=== PATIENT | female | born 1955 | race Caucasian/White ===

== ENCOUNTER 2018-10-19 23:24 | Observation (INO) ==
[2018-10-19] MEDS: Sod Chloride 0.9% Inj 1,000 ML IV.CONT SCH (23:42)
--- NOTE | 2018-10-19 23:49 | ED ---
HPI General Chief Complaint: Chest Pain Stated Complaint: Pain between shoulder blades moving to front Time Seen by Provider: 10/19/18 23:35 Source: patient Mode of arrival: ambulatory Limitations: no limitations History of Present Illness HPI narrative: 63-year-old female presents to the emergency department for 1 week of intermittent chest pain that has been constant since this morning. Pain radiates into her back. Some mild right upper quadrant abdominal pain. No nausea no vomiting no sweats no shortness of breath. No referred neck jaw shoulder or arm discomfort/pain. Patient has history of diabetes but denies personal history of hypertension dyslipidemia or tobaccoism. Patient does have family history of heart disease with mother passing away after CABG. Mother was elderly. Patient denies any evaluation for chest pain in the past. Patient is a recall specific precipitating event but does note worsening of symptoms with exertion. Patient rates discomfort 8/10 in intensity. Patient is taken no medications for symptom relief such as ibuprofen and acetaminophen or antacids. Patient has been compliant with her blood sugar medication and blood sugars have been in the upper 100s but otherwise well controlled. No recent febrile illness long distance travel protracted bedrest surgical procedure clotting disorder history. MD complaint: Reports chest pain STEMI Alert: No Onset (ago): day(s) Time: 08:00 Duration: constant Onset: during rest and during exertion Pain location: Reports substernal and other (to back) Severity: severe Severity scale (1-10): 8 Quality: Reports tightness, aching and heaviness; Denies ripping and similar to prior PR Pain radiation: Reports back; Denies RUE, LUE, neck, jaw/teeth and abdomen Relieving factors: nothing (has taken nothing for symptoms) Exacerbating factors: exertion Context: Denies recent illness, recent surgery, recent immobilization, recent travel, trauma/injury, new medications and history of DVT/PE Associated symptoms: Denies nausea, vomiting, diaphoresis, dyspnea, sense of impending doom, syncope, palpitations, fever, cough and leg swelling Treatments prior to arrival chest pain: Reports none Related Data On Oral Contraceptives: No Home Medications Medication Instructions Recorded Confirmed glimepiride 2 mg PO QAM 10/19/18 10/19/18 meloxicam 15 mg PO HS 10/19/18 10/19/18 metformin 1,000 mg PO DAILY 10/19/18 10/19/18 Allergies Allergy/AdvReac Type Severity Reaction Status Date / Time No Known Allergies Allergy Verified 10/19/18 23:30 Review of Systems ROS: all other systems reviewed are negative PMFSH History History Provided By: Patient (Diabetes family history CAD) Medical History Medical History Diabetes (Acute) Surgical History Surgical History Hx of tonsillectomy (Acute) Social History Social History Substance History: No History of Abuse Second Hand Smoke Exposure: No Smoking Status: Former smoker How Often Do You Have a Drink Containing Alcohol: 2 to 4 times a month Exam Narrative Exam Narrative: GENERAL: Well-nourished, well-developed patient. SKIN: Focused skin assessment warm/dry. HEAD: Normocephalic. EYES: No scleral icterus. No injection or drainage. NECK: Supple, trachea midline. No JVD or lymphadenopathy. CARDIOVASCULAR: Regular rate and rhythm without murmurs, gallops, or rubs. RESPIRATORY: Breath sounds equal bilaterally. No accessory muscle use. GASTROINTESTINAL: Abdomen soft, non-tender, nondistended. MUSCULOSKELETAL: No cyanosis, or edema. BACK: Nontender without obvious deformity. No CVA tenderness. Course Initial Documented Vital Signs Temperature 98.7 F 10/19/18 23:30 Pulse Rate 81 10/19/18 23:30 Respiratory Rate 18 10/19/18 23:30 Blood Pressure 185/90 H 10/19/18 23:30 Pulse Oximetry 95 10/19/18 23:30 Last Documented Vital Signs Temperature 98.7 F 10/19/18 23:30 Pulse Rate 75 10/20/18 04:00 Respiratory Rate 18 10/20/18 04:00 Blood Pressure 138/69 10/20/18 04:00 Pulse Oximetry 95 10/20/18 04:14 Medical Decision Making MDM Narrative Medical decision making narrative: 63-year-old female with retrosternal chest pain radiating into the back placed on rn cardiac cath with continuous pulse oximetry IV access obtained specimens collected and sent for resulting EKG performed shows sinus rhythm QS septally with T wave inversion age- indeterminate mild lateral ST segment depression no acute ST elevation no previous EKG. Medical Screen Exam Complete: Yes Emergency Medical Condition: Yes Differential Diagnosis Differential Diagnosis: Chest pain, ACS, PR, aortic dissection, aneurysm, cholecystitis pancreatitis esophageal spasm PE Medical Records Medical records reviewed: Yes I reviewed the patient's medical records. no prior visits Lab Data Lab results reviewed: Yes I reviewed the patient's lab results. Result diagrams: 10/19/18 23:40 10/19/18 23:40 Lab Results 10/19/18 10/19/18 10/19/18 Range/Units 23:40 23:40 23:40 CBC w Diff Auto diff final WBC 10.7 (4.0-11.0) th/mm3 RBC 5.06 (4.00-5.30) mil/mm3 Hgb 13.6 (11.6-15.3) gm/dL Hct 41.5 (35.0-46.0) % MCV 82.1 (80.0-100.0) fL MCH 27.0 (27.0-34.0) pg MCHC 32.8 (32.0-36.0) % RDW 12.3 (11.6-17.2) % Plt Count 193 (150-450) th/mm3 MPV 9.8 (7.0-11.0) fL Neut % (Auto) 65.5 (16.0-70.0) % Lymph % (Auto) 25.0 (9.0-44.0) % [place] % (Auto) 6.9 (0.0-8.0) % Eos % (Auto) 2.4 (0.0-4.0) % Baso % (Auto) 0.2 (0.0-2.0) % Neut # (Auto) 7.0 (1.8-7.7) th/mm3 Lymph # (Auto) 2.7 (1.0-4.8) th/mm3 [place] # (Auto) 0.7 (0.0-0.9) th/mm3 Eos # (Auto) 0.3 (0.0-0.4) th/mm3 Baso # (Auto) 0.0 (0.0-0.2) th/mm3 WBC Differential . Differential Comment . Sodium 142 (136-145) meq/L Potassium 4.1 (3.5-5.1) meq/L Chloride 108 H (98-107) meq/L Carbon Dioxide 27.4 (21.0-32.0) meq/L Anion Gap 7 (5-15) meq/L BUN 20 H (7-18) mg/dL Creatinine 0.68 (0.50-1.00) mg/dL Estimated GFR 88 L (>89) mL/min Random Glucose 170 H (74-106) mg/dL Calcium 10.2 H (8.5-10.1) mg/dL Total Bilirubin 0.6 (0.2-1.0) mg/dL AST 99 H (15-37) U/L ALT 66 H (10-53) U/L Alkaline Phosphatase 96 (45-117) U/L Total Creatine Kinase 58 (26-192) U/L Troponin I 0.02 (0.02-0.05) ng/mL Total Protein 7.0 (6.4-8.2) g/dL Albumin 3.7 (3.4-5.0) g/dL Lipase 206 (73-393) U/L 10/20/18 Range/Units 02:50 CBC w Diff WBC (4.0-11.0) th/mm3 RBC (4.00-5.30) mil/mm3 Hgb (11.6-15.3) gm/dL Hct (35.0-46.0) % MCV (80.0-100.0) fL MCH (27.0-34.0) pg MCHC (32.0-36.0) % RDW (11.6-17.2) % Plt Count (150-450) th/mm3 MPV (7.0-11.0) fL Neut % (Auto) (16.0-70.0) % Lymph % (Auto) (9.0-44.0) % Craven % (Auto) (0.0-8.0) % Eos % (Auto) (0.0-4.0) % Baso % (Auto) (0.0-2.0) % Neut # (Auto) (1.8-7.7) th/mm3 Lymph # (Auto) (1.0-4.8) th/mm3 [place]ven # (Auto) (0.0-0.9) th/mm3 Eos # (Auto) (0.0-0.4) th/mm3 Baso # (Auto) (0.0-0.2) th/mm3 WBC Differential Differential Comment Sodium (136-145) meq/L Potassium (3.5-5.1) meq/L Chloride (98-107) meq/L Carbon Dioxide (21.0-32.0) meq/L Anion Gap (5-15) meq/L BUN (7-18) mg/dL Creatinine (0.50-1.00) mg/dL Estimated GFR (>89) mL/min Random Glucose (74-106) mg/dL Calcium (8.5-10.1) mg/dL Total Bilirubin (0.2-1.0) mg/dL AST (15-37) U/L ALT (10-53) U/L Alkaline Phosphatase (45-117) U/L Total Creatine Kinase 47 (26-192) U/L Troponin I 0.03 (0.02-0.05) ng/mL Total Protein (6.4-8.2) g/dL Albumin (3.4-5.0) g/dL Lipase (73-393) U/L Imaging Data Radiologist's impression: Chest X-Ray 10/19/18 23:35 CONCLUSION: 1. Negative portable chest. Gallbladder Ultrasound 10/20/18 00:52 CONCLUSION: 1. Cholelithiasis without sonographic evidence for acute cholecystitis. 2. Echogenic enlarged liver consistent with hepatic steatosis versus medical liver disease. 3. Nonvisualization of the pancreas. ECG Data EKG Prior to Arrival: No Attestation: I personally reviewed and interpreted this ECG as follows: (EKG: normal sinus rhythm rate 75 QS septally with T wave inversion age-indeterminate mild lateral ST segment depression no acute ST elevation no previous EKG.) Discharge Plan Discharge Disposition Patient Disposition: ED Admit(ED Internal Use Only) Discharge Condition Condition: Stable Discharge Order Discharge Orders: ED Use Only Admit Order (Routine); Ordered 10/20/18 Ordered By: Ruby Poe Discharge Details Diagnosis: Chest pain Physicians Team ED Provider: Ruby Poe Primary Care Provider: Kody Crane Attending Provider: Katelin Arellano Discharge Interventions Interventions: Vital Signs Last Done: 10/20/18 04:00 Status ED Status: Admitted Observation Patient
--- NOTE | 2018-10-19 23:56 | XR ---
EXAM DATE: 10/19/2018 11:48 PM EST AGE/SEX: 63 years / Female INDICATIONS: Chest pain, radiating from back to chest. CLINICAL DATA: This is the patient's initial encounter. Patient reports that signs and symptoms have been present for 1 day and indicates a pain score of 8/10. MEDICAL/SURGICAL HISTORY: None. None. COMPARISON: No prior exams available for comparison. FINDINGS: No significant focal pleural or parenchymal opacities. The cardiomediastinal contours are unremarkabl e. Osseous structures are intact. CONCLUSION: 1. Negative portable chest. Electronically signed by: Pablo Parry MD Board Certified Radiologist 10/19/2018 11:[address]
[2018-10-19] MEDS ORDERED: Morphine Inj 4 MG/ML Vial IV.PUSH ONE (23:58)
[2018-10-19] MEDS ORDERED: Sodium Chlor 0.9% Inj 500 ML IV.SIG ONE (23:58)
[2018-10-20] LABS: Baso % (Auto) 0.2 % (0.0-2.0); Eos # (Auto) 0.3 th/mm3 (0.0-0.4); Eos % (Auto) 2.4 % (0.0-4.0); Hematocrit 41.5 % (35.0-46.0); Hemoglobin 13.6 gm/dL (11.6-15.3); Lymph # (Auto) 2.7 th/mm3 (1.0-4.8); Mean Corpuscular HGB Conc 32.8 % (32.0-36.0); Mean Corpuscular Volume 82.1 fL (80.0-100.0); Mean Platelet Volume 9.8 fL (7.0-11.0); Mono # (Auto) 0.7 th/mm3 (0.0-0.9); Mono % (Auto) 6.9 % (0.0-8.0); Neut % (Auto) 65.5 % (16.0-70.0); Platelet Count 193 th/mm3 (150-450); Red Blood Count 5.06 mil/mm3 (4.00-5.30); Red Cell Distribution Width 12.3 % (11.6-17.2); White Blood Count 10.7 th/mm3 (4.0-11.0)
[2018-10-20 00:09] LABS: Chloride 108 meq/L (98-107); Potassium 4.1 meq/L (3.5-5.1); Sodium 142 meq/L (136-145)
[2018-10-20 00:14] LABS: Albumin 3.7 g/dL (3.4-5.0); Anion Gap 7 meq/L (5-15); Calcium 10.2 mg/dL (8.5-10.1); Carbon Dioxide 27.4 meq/L (21.0-32.0); Glucose,Random 170 mg/dL (74-106); Lipase 206 U/L (73-393)
[2018-10-20 00:15] LABS: Blood Urea Nitrogen 20 mg/dL (7-18)
[2018-10-20 00:17] LABS: Alanine Aminotransferase 66 U/L (10-53); Aspartate Aminotransferase 99 U/L (15-37)
[2018-10-20 00:18] LABS: Glomerular Filtration Rate 88 mL/min (>89)
[2018-10-20 00:20] LABS: Alkaline Phosphatase 96 U/L (45-117)
[2018-10-20 00:22] LABS: Troponin I 0.02 ng/mL (0.02-0.05)
[2018-10-20 00:26] LABS: Creatine Kinase 58 U/L (26-192)
--- NOTE | 2018-10-20 02:05 | US ---
EXAM DATE: 10/20/2018 1:20 AM EST AGE/SEX: 63 years / Female INDICATIONS: Right upper quadrant pain. CLINICAL DATA: This is the patient's initial encounter. Patient reports that signs and symptoms have been present for 1 week and indicates a pain score of 8/10. MEDICAL/SURGICAL HISTORY: . Diabetes. Former smoker. . Tonsillectomy. COMPARISON: No prior exams available for comparison. MEASUREMENTS: Liver:__ 23.0 cm. Common Bile Duct:__ 4mm. FINDINGS: Liver: Mild diffuse increased echogenicity without focal lesion or ductal dilatation. Portal Vein: Hepatopedal flow seen in portal vein. Common Duct: No intraluminal mass or stone visualized. Gallbladder: 2 cm calcified gallstone near the gallbladder neck. No significant gallbladder wall thi ckening or pericholecystic fluid. Pancreas: Not well visualized. Right Kidney: Normal echogenicity and cortical thickness. No mass or hydronephrosis. Other: None. CONCLUSION: 1. Cholelithiasis without sonographic evidence for acute cholecystitis. 2. Echogenic enlarged liver consistent with hepatic steatosis versus medical liver disease. 3. Nonvisualization of the pancreas. Electronically signed by: Pablo Parry MD Board Certified Radiologist 10/20/2018 2:03 AM MIKKI Ruvalcaba
[2018-10-20] MEDS ORDERED: Regadenoson Inj 0.4 MG/5 ML Syringe IV.PUSH ONE (02:29)
[2018-10-20 03:19] LABS: Troponin I 0.03 ng/mL (0.02-0.05)
[2018-10-20 06:10] LABS: Troponin I 0.03 ng/mL (0.02-0.05)
[2018-10-20] MEDS: Pantoprazole Inj 40 MG Vial IV.PUSH SCH (08:35)
[2018-10-20] MEDS: Sod Chloride 0.9% Inj 1,000 ML IV.CONT SCH (11:59)
--- NOTE | 2018-10-20 14:36 | CT ---
EXAM DATE: 10/20/2018 2:29 PM EST AGE/SEX: 63 years / Female INDICATIONS: Diffuse abdominal pain. Nausea. CLINICAL DATA: This is the patient's initial encounter. Patient reports that signs and symptoms have been present for 1 day and indicates a pain score of 8/10. MEDICAL/SURGICAL HISTORY: Diabetes. Tonsillectomy. RADIATION DOSE: 23.10 CTDI (mGy) ; Patient body habitus COMPARISON: No prior exams available for comparison. TECHNIQUE: Multiple contiguous axial images were obtained through the abdomen. Images were obtained using multiple row detector helical technique. Using automated exposure control and adjustment of the mA and/or kV according to patient size, radiation dose was kept as low as reasonably achievable to o btain optimal diagnostic quality images. DICOM format image data is available electronically for rev iew and comparison. Lack of IV contrast limits the diagnosis for certain organ pathology. FINDINGS: Lower Lungs: The visualized lower lungs are clear. Liver: The liver has a homogeneous density without space-occupying lesion. There is no dilation of th e biliary tree. There are gallstones in the gallbladder. No surrounding inflammatory changes. Spleen: Homogeneous density without enlargement. Pancreas: Unremarkable without mass or calcification. Kidneys: Normal in size and shape. No evidence of mass or hydronephrosis. 4 mm stone lower pole righ t kidney not causing obstruction. The ureters are nondilated. Adrenal Glands: 2 cm left adrenal nodule. Right adrenal gland unremarkable. Aorta: The aorta and proximal iliac vessels are grossly unremarkable without aneurysmal dilation. Bowel/Mesentery: The bowel loops are grossly unremarkable. The cecum and sigmoid colon have a normal configuration. No inflammatory changes. Stool throughout the colon. No free fluid. Abdominal Wall: Intact. Retroperitoneum: No evidence of adenopathy in the retrocrural, para-aortic, or deep pelvic regions. Bladder: Contours are smooth. Reproductive Organs: No abnormal masses or calcifications seen. Inguinal: The inguinal region is unremarkable without evidence of adenopathy. Bony Structures: Moderate old compression fracture of L4. Otherwise the rest the bony structures ar e grossly intact. There are degenerative changes noted involving the bony structures. CONCLUSION: 1. Gallstones in the gallbladder. No biliary tract obstruction. 2. 2 cm left adrenal nodule most likely an adrenal adenoma. 3. 4 mm nonobstructing stone lower pole right kidney. 4. Old moderate compression fracture of L4. Electronically signed by: Brando Hopper MD Board Certified Radiologist 10/20/2018 2:35 PM EST
--- NOTE | 2018-10-20 15:22 | P.HP ---
History of Present Illness Primary Care Physician: Kody Crane MD Chief Complaint: Chest pain History of Present Illness: This is a 63-year-old female patient with a known medical history of diabetes who presented to the ED with complaints of chest pain. Patient states that over the past week she has had intermittent chest pain that started with her normal day the activities, states that the pain occurs in the middle lower back and radiates to the front of her chest, she states the pain is sharp in nature and has been constant since this morning. He did not 8 out of 10 at its worst on pain scale. She also complains of some right upper quadrant abdominal pain. She admits to associated nausea and shortness of breath, denies any vomiting or sweating. She states that she has never had this type of pain before. Denies any recent illness including fever, chills, cough, headache, diarrhea or dysuria. Patient denies ever undergoing a cardiac stress test. Her mother does have a history of CAD and underwent a CABG. Her dad also has cardiovascular disease. Does have a history of diabetes, appropriately controlled on home medications. Denies any previous colonoscopy. She does state that she has been taking Advil every morning for back pain. Denies any previous ulcer. Denies any black or bloody stools. - Diagnosis (1) Chest pain Review of Systems All other systems reviewed negative except as stated in HPI PMFSH - History History Provided By: Patient - Medical History Medical History: Medical History (Last Reviewed 10/20/18 @ 15:18 by Margie Julian) Diabetes - Surgical History Surgical History: Surgical History (Last Reviewed 10/20/18 @ 15:18 by Margie Julian) Hx of tonsillectomy - Family History Family History: Family History (Last Updated 10/20/18 @ 15:18 by Margie Julian) Other Cardiovascular disease - Social History I have reviewed the patient's Social History: Yes - Tobacco History Second Hand Smoke Exposure: Yes Smoking Status: Former smoker Tobacco Type: Cigarettes - Alcohol History How Often Do You Have a Drink Containing Alcohol: 2 to 4 times a month - Substance Use History Substance History: No History of Abuse - Immunization History Tetanus Immunization: >5 Years Medications and Allergies Active Medications: Active Medications Sodium Chloride (Ns Inj) 1,000 mls @ 100 mls/hr IV.CONT .Q10H [facility] Last Admin: 10/20/18 11:59 Dose: 100 mls/hr Nitroglycerin (Nitrostat Sl) 0.4 mg SL Q5M PRN PRN Reason: CHEST PAIN Pantoprazole Sodium (Protonix Inj) 40 mg IV.PUSH Q24H [facility] Last Admin: 10/20/18 08:35 Dose: 40 mg Sodium Chloride (Ns Flush) 2 ml IV.FLUSH BID [facility] Last Admin: 10/20/18 11:53 Dose: Not Given Sodium Chloride (Ns Flush) 2 ml IV.FLUSH PRN PRN PRN Reason: FLUSH AFTER USING IV ACCESS Sucralfate (Carafate) 1 gm PO BIDAC [facility] Allergies Allergy/AdvReac Type Severity Reaction Status Date / Time No Known Allergies Allergy Verified 10/19/18 23:30 Home Medications Medication Instructions Recorded Confirmed Type glimepiride 2 mg PO QAM 10/19/18 10/19/18 History meloxicam 15 mg PO HS 10/19/18 10/19/18 History metformin 1,000 mg PO DAILY 10/19/18 10/19/18 History Exam Vital signs: Vital Signs 10/19/18 23:30 10/19/18 23:48 10/19/18 23:55 Temperature 98.7 F Pulse Rate 81 80 81 Respiratory Rate 18 Blood Pressure 185/90 H 135/70 129/72 Pulse Oximetry 95 10/20/18 00:01 10/20/18 00:03 10/20/18 00:19 Temperature Pulse Rate 81 78 81 Respiratory Rate Blood Pressure 115/62 134/71 Pulse Oximetry 95 10/20/18 00:45 10/20/18 04:00 10/20/18 04:14 Temperature Pulse Rate 78 75 Respiratory Rate 18 Blood Pressure 143/71 H 138/69 Pulse Oximetry 96 95 10/20/18 07:04 10/20/18 07:11 10/20/18 10:44 Temperature Pulse Rate 79 78 Respiratory Rate 20 20 Blood Pressure 140/77 145/65 H Pulse Oximetry 94 L 94 L 94 L 10/20/18 12:00 Temperature 98.8 F Pulse Rate 80 Respiratory Rate 19 Blood Pressure 150/81 H Pulse Oximetry 97 Intake & Output 10/19/18 10/20/18 10/20/18 18:59 06:59 18:59 Intake Total 500 / 500 1000 / 1000 Balance 500 / 500 1000 / 1000 Weight 93.2 kg Intake: IV 500 / 500 1000 / 1000 NS Inj 1,000 ML @ 100 mls/hr IV 1000 / 1000 .CONT .Q10H [facility] Rx#:[id number] NS Inj 500 ML @ Wide Open IV. 500 / 500 SIG BOLUS ONE Rx#:[id number] Oral 0 / 0 Narrative: GENERAL: Well-developed, well-nourished patient in NAD. SKIN: Warm and dry. No rash. HEAD: Normocephalic. Atraumatic. EYES: Pupils equal and round. No scleral icterus. No injection or drainage. ENT: No nasal bleeding or discharge. Mucous membranes pink and moist. NECK: Supple. Trachea midline. CARDIOVASCULAR: Regular rate and rhythm. S1, S2 noted. No murmur appreciated. No chest pain to palpation. RESPIRATORY: No accessory muscle use. Clear to auscultation. Breath sounds equal bilaterally. GASTROINTESTINAL: Abdomen soft, nondistended. Normoactive bowel sounds x4. Tenderness to epigastric area as well as right upper quadrant pain. MUSCULOSKELETAL: No obvious deformities. Extremities without clubbing, cyanosis , or edema. NEUROLOGICAL: Awake and alert. No obvious cranial nerve deficits. Motor grossly within normal limits. 5/5 muscle strength in bilateral upper and lower extremities. Normal speech. PSYCHIATRIC: Appropriate mood and affect; insight and judgment normal. Results - Labs CBC & Chem 7: 10/19/18 23:40 10/19/18 23:40 Labs: Laboratory Results - last 24 hr 10/19/18 10/19/18 10/19/18 23:40 23:40 23:40 CBC w Diff Auto diff final WBC 10.7 RBC 5.06 Hgb 13.6 Hct 41.5 MCV 82.1 MCH 27.0 MCHC 32.8 RDW 12.3 Plt Count 193 MPV 9.8 Neut % (Auto) 65.5 Lymph % (Auto) 25.0 [place] % (Auto) 6.9 Eos % (Auto) 2.4 Baso % (Auto) 0.2 Neut # (Auto) 7.0 Lymph # (Auto) 2.7 [place] # (Auto) 0.7 Eos # (Auto) 0.3 Baso # (Auto) 0.0 WBC Differential . Differential Comment . Sodium 142 Potassium 4.1 Chloride 108 H Carbon Dioxide 27.4 Anion Gap 7 BUN 20 H Creatinine 0.68 Estimated GFR 88 L POC Glucose Random Glucose 170 H Calcium 10.2 H Total Bilirubin 0.6 AST 99 H ALT 66 H Alkaline Phosphatase 96 Total Creatine Kinase 58 Troponin I 0.02 Total Protein 7.0 Albumin 3.7 Lipase 206 10/20/18 10/20/18 10/20/18 02:50 05:40 12:17 CBC w Diff WBC RBC Hgb Hct MCV MCH MCHC RDW Plt Count MPV Neut % (Auto) Lymph % (Auto) [place] % (Auto) Eos % (Auto) Baso % (Auto) Neut # (Auto) Lymph # (Auto) [place] # (Auto) Eos # (Auto) Baso # (Auto) WBC Differential Differential Comment Sodium Potassium Chloride Carbon Dioxide Anion Gap BUN Creatinine Estimated GFR POC Glucose 157 H Random Glucose Calcium Total Bilirubin AST ALT Alkaline Phosphatase Total Creatine Kinase 47 46 Troponin I 0.03 0.03 Total Protein Albumin Lipase - Imaging Impressions Chest X-Ray 10/19/18 23:35 CONCLUSION: 1. Negative portable chest. Abdomen/Pelvis CT 10/20/18 00:00 CONCLUSION: 1. Gallstones in the gallbladder. No biliary tract obstruction. 2. 2 cm left adrenal nodule most likely an adrenal adenoma. 3. 4 mm nonobstructing stone lower pole right kidney. 4. Old moderate compression fracture of L4. Gallbladder Ultrasound 10/20/18 00:52 CONCLUSION: 1. Cholelithiasis without sonographic evidence for acute cholecystitis. 2. Echogenic enlarged liver consistent with hepatic steatosis versus medical liver disease. 3. Nonvisualization of the pancreas. Caprini VTE Risk Assessment Caprini VTE Risk Assessment: Moderate/High Risk (score >= 2) Caprini Risk Assessment Model: Point Value = 1 Point Value = 2 Point Value = 3 Point Value = 5 Age 41-60 Minor surgery BMI > 25 kg/m2 Swollen legs Varicose veins or History of unexplained or recurrent spontaneous Oral contraceptives or hormone replacement Sepsis (< 1 month) Serious lung disease, including pneumonia (< 1 month) Abnormal pulmonary function Acute myocardial infarction Congestive heart failure (< 1 month) History of inflammatory bowel disease Medical patient at bed rest Age 61-74 Arthroscopic surgery Major open surgery (> 45 min) Laparoscopic surgery (> 45 min) Malignancy Confined to bed (> 72 hours) Immobilizing plaster cast Central venous access Age >= 75 History of VTE Family history of VTE Factor V Leiden Prothrombin [id number] Lupus anticoagulant Anticardiolipin antibodies Elevated serum homocysteine Heparin-induced thrombocytopenia Other congenital or acquired thrombophilia Stroke (< 1 month) Elective arthroplasty Hip, pelvis, or leg fracture Acute spinal cord injury (< 1 month) Prophylaxis Regimen: Total Risk Factor Score Risk Level Prophylaxis Regimen 0-1 Low Early ambulation 2 Moderate Order ONE of the following: *Sequential Compression Device (SCD) *Heparin 5000 units SQ BID 3-4 Higher Order ONE of the following medications: *Heparin 5000 units SQ TID *Enoxaparin/Lovenox 40 mg SQ daily (WT < 150 kg, CrCl > 30 mL/min) *Enoxaparin/Lovenox 30 mg SQ daily (WT < 150 kg, CrCl > 10-29 mL/min) *Enoxaparin/Lovenox 30 mg SQ BID (WT < 150 kg, CrCl > 30 mL/min) AND/OR *Sequential Compression Device (SCD) 5 or more Highest Order ONE of the following medications: *Heparin 5000 units SQ TID (Preferred with Epidurals) *Enoxaparin/Lovenox 40 mg SQ daily (WT < 150 kg, CrCl > 30 mL/min) *Enoxaparin/Lovenox 30 mg SQ daily (WT < 150 kg, CrCl > 10-29 mL/min) *Enoxaparin/Lovenox 30 mg SQ BID (WT < 150 kg, CrCl > 30 mL/min) AND *Sequential Compression Device (SCD) Assessment and Plan - Assessment (1) Chest pain Code(s): R07.9 - Chest pain, unspecified Status: Acute - Plan This is a 63-year-old female patient with: Chest pain, atypical -Patient presented with a one-week history of back pain that radiated to her chest and left arm. -Serial EKGs and serial troponins been ordered for ruling out ACS purposes. Serial troponins flat. EKG reviewed showing sinus rhythm with no ST changes. -Cardiac telemetry continue, monitor for any arrhythmias. -Chest x-ray reviewed showing no acute abnormalities. -Aspirin given in ED. Continue daily. -Add lipid panel to labs. -Nitroglycerin as needed for chest pain. -Patient will undergo a cardiac stress test to further rule out any ischemia. ACS has been ruled out. -Further hospitalization treatment plan will depend on nuclear imaging results. -Patient stable this time and agreeable to plan. Abdominal pain Nausea -Abdominal/pelvis CT done showing gallstones no acute cholecystitis. Gallbladder ultrasound not showing any acute findings. -Provided with Protonix. As well as Carafate. -N.p.o. for now. -Antiemetics as needed. IV morphine given in ED. Type 2 diabetes mellitus, chronic -Accu-Chek before meals at bedtime, sliding scale, cover as needed. Monitor blood sugar trends. Monitor for hypoglycemia, n.p.o. DVT prophylaxis: SCDs.
[2018-10-20] MEDS ORDERED: Dextrose 50% in Water 50 ML Vial IV.PUSH PRN (15:24)
[2018-10-20] MEDS: Sucralfate 1 GM Tablet PO SCH (16:31)
[2018-10-20] MEDS: Insulin NovoLOG Aspart Correctional Sugar Inj SQ SCH ×2 (16:34→23:00)
--- NOTE | 2018-10-20 16:46 | NM ---
EXAM DATE: 10/20/2018 4:33 PM EST AGE/SEX: 63 years / Female INDICATIONS:Angina. . Intermittent chest pain. CLINICAL DATA: This is the patient's initial encounter. Patient reports that signs and symptoms have been present for 1 week and indicates a pain score of 3/10. MEDICAL/SURGICAL HISTORY: Diabetes. Tonsillectomy. COMPARISON: No prior exams available for comparison. DOSE: 8.8 mCi Tc 99m Myoview at rest 27.3 mCi [id number] at stress 0.4 mg Lexiscan STRESS SYMPTOMS: None. EJECTION FRACTION: 32 % TECHNIQUE: The patient underwent pharmacologic stress with infusion of prescribed dose. Continuous ECG tracing was monitored during stress. Gated SPECT imaging was performed after stress and conventi onal SPECT imaging was performed at rest. The examination was performed on a SPECT/CT scanner, both attenuation and non-corrected datasets were reviewed. FINDINGS: Distribution: The maximum perfused segment at stress is in the posterior basal wall. Perfusion Study: There is a very large area of absent perfusion involving the apex. A mild degree o f multi territory norman-infarct ischemia cannot be excluded. Gated Study: Apical akinesis. Moderate left ventricular chamber dilatation. The ejection fraction i s calculated at 32%. RISK CATEGORY: High (>3% Annual Mortality Rate) CONCLUSION: Large apical infarct. Electronically signed by: Bowen Morales MD Board Certified Radiologist 10/20/2018 4:45 PM EST
--- NOTE | 2018-10-20 18:06 | TR ---
Date Performed: 10/20/2018 Time Performed: 15:23:43 DOCTOR: Mahsa Turcios DRUG LIST: CLINICAL HISTORY: REASON FOR TEST: Angina REASON FOR ENDING: OBSERVATION: CONCLUSION: Lexiscan stress test was performed under standard four minute protocol. Radionuclid e was injected one minute prior to ending the test. No electrocardiographic abormalities were present to suggest ischemia. Nuclear imaging and interpretation are pending. COMMENTS: Lexiscan stress test was performed under standard four minute protocol. Radionuclide was injected one minute prior to ending the test. No electrocardiographic abormalities were present t o suggest ischemia. Nuclear imaging and interpretation are pending.
--- NOTE | 2018-10-20 20:01 | ECG ---
Date Performed: 10/20/2018 Time Performed: 02:35:43 PTAGE: 63 years EKG: Sinus rhythm LOW QRS VOLTAGE IN PRECORDIAL LEADS SEPTAL MYOCARDIAL INFARCTION Since the previous tracing, no sign ificant change noted ABNORMAL ECG PREVIOUS TRACING : 10/19/2018 23.38 DOCTOR: Mahsa Turcios Interpretating Date/Time 10/20/2018 20:01:10
--- NOTE | 2018-10-20 20:01 | ECG ---
Date Performed: 10/19/2018 Time Performed: 23:38:01 PTAGE: 63 years EKG: Sinus rhythm LOW QRS VOLTAGE IN PRECORDIAL LEADS SEPTAL MYOCARDIAL INFARCTION ABNORMAL ECG NO PREVIOUS TRACING DOCTOR: Mahsa Turcios Interpretating Date/Time 10/20/2018 20:00:54
--- NOTE | 2018-10-20 20:02 | ECG ---
Date Performed: 10/20/2018 Time Performed: 05:36:57 PTAGE: 63 years EKG: Sinus rhythm LOW QRS VOLTAGE IN PRECORDIAL LEADS SEPTAL MYOCARDIAL INFARCTION Since the previous tracing, no sign ificant change noted ABNORMAL ECG PREVIOUS TRACING : 10/20/2018 02.35 DOCTOR: Mahsa Turcios Interpretating Date/Time 10/20/2018 20:01:18
[2018-10-20] MEDS ORDERED: Meloxicam 15 MG Tablet PO SCH (21:00)
[2018-10-20] MEDS: Metoprolol Tartrate 25 MG Tablet PO SCH (21:15)
[2018-10-20 22:50] LABS: Chol/HDL Ratio 5.34 Ratio; HDL Cholesterol 42.3 mg/dL (40.0-60.0)
[2018-10-21] MEDS: Sucralfate 1 GM Tablet PO SCH (07:16)
[2018-10-21] MEDS: Insulin NovoLOG Aspart Correctional Sugar Inj SQ SCH ×2 (07:17→11:23)
[2018-10-21] MEDS ORDERED: Lisinopril 5 MG Tablet PO SCH (09:00)
[2018-10-21] MEDS: Pantoprazole Inj 40 MG Vial IV.PUSH SCH (10:24)
[2018-10-21] MEDS: Metoprolol Tartrate 25 MG Tablet PO SCH (10:24)
--- NOTE | 2018-10-21 11:36 | ECHRPT ---
Indication: Heart Failure CONCLUSIONS Normal left ventricular size. Wall thickness is measured at the upper limits of normal. The left ventricular systolic function is normal with an estimated ejection fraction in the range of 50-55%. Possible small area of apical akinesis. Mild mitral annular calcification is present. Trileaflet aortic valve. Mild aortic valve sclerosis is present. There is trace tricuspid valve regurgitation. The estimated pulmonary arterial pressure is 40 mmHg. BP: / HR: Rhythm: MEASUREMENTS (Male / Female) Normal Values Technical Quality:Fair 2D ECHO LV Diastolic Diameter PLAX 5.0 cm 4.2 - 5.9 / 3.9 - 5.3 cm LV Systolic Diameter PLAX 3.2 cm IVS Diastolic Thickness 1.2 cm 0.6 - 1.0 / 0.6 - 0.9 cm LVPW Diastolic Thickness 1.1 cm 0.6 - 1.0 / 0.6 - 0.9 cm LV Relative Wall Thickness 0.5 RV Internal Dim ED PLAX 3.2 cm LVOT Diameter 2.2 cm Aortic Root Diameter 2.8 cm LA Systolic Diameter LX 3.9 cm 3.0 - 4.0 / 2.7 - 3.8 cm DOPPLER AV Peak Velocity 147.0 cm/s AV Peak Gradient 8.6 mmHg LVOT Peak Velocity 112.0 cm/s LVOT Peak Gradient 5.0 mmHg AV Area Cont Eq pk 2.9 cm Mitral E Point Velocity 62.3 cm/s Mitral A Point Velocity 107.0 cm/s Mitral E to A Ratio 0.6 LV E' Lateral Velocity 5.6 cm/s Mitral E to LV E' Lateral Ratio 11.2 LV E' Septal Velocity 5.2 cm/s Mitral E to LV E' Septal Ratio 12.1 TR Peak Velocity 274.0 cm/s TR Peak Gradient 30.0 mmHg Right Atrial Pressure 10.0 mmHg Pulmonary Artery Systolic Pressu 40.0 mmHg Right Ventricular Systolic Press 40.0 mmHg PV Peak Velocity 49.4 cm/s PV Peak Gradient 1.0 mmHg FINDINGS LEFT VENTRICLE Normal left ventricular size. Wall thickness is measured at the upper limits of normal. The left ventricular systolic function is normal with an estimated ejection fraction in the range of 50-55%. Possible small area of apical akinesis. RIGHT VENTRICLE Normal right ventricular size and systolic function. LEFT ATRIUM The left atrial size is normal. RIGHT ATRIUM The right atrial size is normal. ATRIAL SEPTUM Normal atrial septal thickness without atrial level shunting by limited color doppler interrogation. AORTA The aortic root and proximal ascending aorta are normal in size on limited imaging. MITRAL VALVE Mild mitral annular calcification is present. AORTIC VALVE Trileaflet aortic valve. Mild aortic valve sclerosis is present. TRICUSPID VALVE There is trace tricuspid valve regurgitation. The estimated pulmonary arterial pressure is 40 mmHg. PULMONARY VALVE Trivial pulmonary valve regurgitation. VESSELS The inferior vena cava is normal in size. PERICARDIUM No pericardial effusion. Ajay Jean Baptiste MD (Electronically Signed) Final Date:21 October 2018 11:34
--- NOTE | 2018-10-21 14:38 | MB ---
cc: Mahsa Turcios MD DATE: 10/21/2018 REASON FOR CONSULTATION: Chest pain and abnormal nuclear stress test. HISTORY OF PRESENT ILLNESS: Ms. Elam is a 63-year-old female who does have a history of diabetes. She presented with back pain between her shoulder blades that radiated to the front. She denies any precipitating or relieving factors. PAST MEDICAL HISTORY: Remarkable for diabetes. She specifically denies any history of hypertension or hyperlipidemia. SOCIAL HISTORY: The patient is a former smoker. FAMILY HISTORY: Positive for CAD. REVIEW OF SYSTEMS: Except as mentioned in the HPI, all 12 systems are negative. PHYSICAL EXAMINATION: VITAL SIGNS: 97.6, 75, 20, 151/84. GENERAL: She is an obese female who is in no apparent distress. NECK: Free from JVD. LUNGS: Bilaterally clear to auscultation. CARDIOVASCULAR: She has a normal S1 and S2. I did not appreciate any murmurs, rubs or gallops. ABDOMEN: Soft. EXTREMITIES: Free from edema. LABORATORY DATA: Serial troponins of 0.03/0.03/0.02. Echocardiogram shows an EF of 50-55% with possible small area of apical akinesis. Stress test is remarkable for an EF of 32% with a large fixed apical defect. Chest x-ray was negative. EKG shows normal sinus rhythm with poor R-wave progression and possible septal ND. IMPRESSION: 1. Abnormal nuclear stress test - the patient did present with back pain that radiated to her front. There is no sign of any acute coronary event. She may have had an apical infarct. At this point, I do not believe it would affect her, though ejection fraction was overall preserved on echo. There was no evidence for ischemia. Thus, at this point, I would not pursue any further evaluation with a catheterization, particularly as the patient has not really had any chest pain. I did emphasize the importance of diabetic control. It would be reasonable if she wishes to take an aspirin. Back pain - The patient did present with back pain that radiated to the chest. She had a normal chest x-ray and no ischemia on nuclear stress testing. Thus, at this point, I do believe it is reasonable for her to be discharged home. I will be available p.r.n. MD ARASH Heredia/ct , 02:11 PM , 02:20 PM
--- NOTE | 2018-10-21 15:27 | P.PNIM ---
Subjective Interval history: Patient seen sitting up in bed. She denies any further chest pain. No shortness of breath. No fever or chills. Abdominal pain has resolved. Patient endorses that she usually only has 1 bowel movement a week and thinks this may be related to her abdominal pain. Physical Exam Vital signs: Last Vital Signs Temp 97.6 F 10/21/18 12:00 Pulse 75 10/21/18 12:00 Resp 20 10/21/18 12:00 BP 151/84 H 10/21/18 12:00 Pulse Ox 97 10/21/18 12:00 Intake & Output 10/19/18 10/20/18 10/21/18 10/22/18 06:59 06:59 06:59 06:59 Intake Total 500 / 500 1670 / 1670 240 / 240 Output Total 600 / 600 500 / 500 Balance 500 / 500 1070 / 1070 -260 / -260 Weight 93.2 kg 92 kg Narrative: GENERAL: Well-developed, well-nourished patient in [facility]. SKIN: Warm and dry. No rash. HEAD: Normocephalic. Atraumatic. CARDIOVASCULAR: Regular rate and rhythm. No chest pain to palpation. RESPIRATORY: No accessory muscle use. Clear to auscultation. Breath sounds equal bilaterally. GASTROINTESTINAL: Abdomen soft, nondistended. Normoactive bowel sounds x4. Now nontender. MUSCULOSKELETAL: No obvious deformities. Extremities without clubbing, cyanosis , or edema. NEUROLOGICAL: Awake and alert. No obvious cranial nerve deficits. Motor grossly within normal limits. Normal speech. PSYCHIATRIC: Appropriate mood and affect; insight and judgment normal. Results Labs CBC & Chem 7: 10/19/18 23:40 10/19/18 23:40 Imaging Imaging: Impressions Myocardial Perfusion Scan Nuc Med 10/20/18 00:00 CONCLUSION: Large apical infarct. Assessment and Plan (1) Chest pain: Code(s): R07.9 - Chest pain, unspecified Status: Acute Plan This is a 63-year-old female patient with: Chest pain, atypical -resolved -Patient presented with a one-week history of back pain that radiated to her chest and left arm. -Serial EKGs and serial troponins been ordered for ruling out ACS purposes. Serial troponins flat. EKG reviewed showing sinus rhythm with no ST changes. -Cardiac telemetry continue, monitor for any arrhythmias. -Chest x-ray reviewed showing no acute abnormalities. -Aspirin given in ED. Continue daily. -Add lipid panel to labs. New diagnosis of hyperlipidemia-patient to follow-up with PCP to start statin and monitor liver function. -Nitroglycerin as needed for chest pain. -Stress test negative ischemia. ACS has been ruled out. -Cardiology consulted; has no further recommendations other than ASA daily. Abdominal pain Nausea -Abdominal/pelvis CT done showing gallstones no acute cholecystitis. Gallbladder ultrasound not showing any acute findings. -Provided with Protonix. As well as Carafate. -Resolved. Encouraged to add daily fiber supplement to help regulate bowels. Type 2 diabetes mellitus, chronic; poorly controlled -Accu-Chek before meals at bedtime, sliding scale, cover as needed. Monitor blood sugar trends. DVT prophylaxis: SCDs. Progress Note: Quality VTE Deep Vein Thrombosis/Pulmonary Embolism Present on Admission: No _ (1) Chest pain Qualifiers: Chest pain type: Ischemic chest pain type:
--- NOTE | 2018-10-21 15:30 | P.DS ---
DS: Providers Date of admission: 10/20/18 02:28 Primary care physician: Kody Crane MD Consults: 10/21/18 08:05 Consult to Cardiology Routine Consulting Provider: Ajay Jean Baptiste Does the patient have a Computer Help Desk Specialist who follows them?: No Preferred [employer] Crewmember:: Salesperson Parts Physician Reason for Consultation: abnormal lexiscan. Notified:: Office Spoke with:: Tressa Date Notified:: 10/21/18 Time Notified:: 08:10 Ordering Provider: BHARATHI Brief History from admission: This is a 63-year-old female patient with a known medical history of diabetes who presented to the ED with complaints of chest pain. Patient states that over the past week she has had intermittent chest pain that started with her normal day the activities, states that the pain occurs in the middle lower back and radiates to the front of her chest, she states the pain is sharp in nature and has been constant since this morning. He did not 8 out of 10 at its worst on pain scale. She also complains of some right upper quadrant abdominal pain. She admits to associated nausea and shortness of breath, denies any vomiting or sweating. She states that she has never had this type of pain before. Denies any recent illness including fever, chills, cough, headache, diarrhea or dysuria. Patient denies ever undergoing a cardiac stress test. Her mother does have a history of CAD and underwent a CABG. Her dad also has cardiovascular disease. Does have a history of diabetes, appropriately controlled on home medications. Denies any previous colonoscopy. She does state that she has been taking Advil every morning for back pain. Denies any previous ulcer. Denies any black or bloody stools. DS: Diagnosis Discharge Diagnosis (1) Chest pain: Status: Acute DS: Summary This is a 63-year-old female patient with: Chest pain, atypical -resolved -Patient presented with a one-week history of back pain that radiated to her chest and left arm. -Serial EKGs and serial troponins been ordered for ruling out ACS purposes. Serial troponins flat. EKG reviewed showing sinus rhythm with no ST changes. -Cardiac telemetry continue, monitor for any arrhythmias. -Chest x-ray reviewed showing no acute abnormalities. -Aspirin given in ED. Continue daily. -Add lipid panel to labs. New diagnosis of hyperlipidemia-patient to follow-up with PCP to start statin and monitor liver function. -Nitroglycerin as needed for chest pain. -Stress test negative ischemia. 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 ACS has been ruled out. -Cardiology consulted; has no further recommendations other than ASA daily. Abdominal pain /Nausea -acute; resolved -Abdominal/pelvis CT done showing gallstones no acute cholecystitis. Gallbladder ultrasound not showing any acute findings. -Possibly exacerbated by constipation -Provided with Protonix. As well as Carafate. -Encouraged to add daily fiber supplement to help regulate bowels. Type 2 diabetes mellitus, chronic -Accu-Chek before meals at bedtime, sliding scale, cover as needed. Monitor blood sugar trends. -Resume previous home medications at discharge DVT prophylaxis: SCDs. Encouraged patient to follow-up with primary care. Time Spent with Patient Total time spent providing and/or coordinating discharge services: < 30 min Quality: VTE Deep Vein Thrombosis/Pulmonary Embolism Present on Admission: No Exam Narrative Exam Narrative: GENERAL: Well-developed, well-nourished patient in [place]. SKIN: Warm and dry. No rash. HEAD: Normocephalic. Atraumatic. CARDIOVASCULAR: Regular rate and rhythm. No chest pain to palpation. RESPIRATORY: No accessory muscle use. Clear to auscultation. Breath sounds equal bilaterally. GASTROINTESTINAL: Abdomen soft, nondistended. Normoactive bowel sounds x4. Now nontender. MUSCULOSKELETAL: No obvious deformities. Extremities without clubbing, cyanosis , or edema. NEUROLOGICAL: Awake and alert. No obvious cranial nerve deficits. Motor grossly within normal limits. Normal speech. PSYCHIATRIC: Appropriate mood and affect; insight and judgment normal. Results Labs on day of discharge: Labs from last 24 hours 10/21/18 10/21/18 10/20/18 11:20 07:16 21:52 POC Glucose 108 116 H 159 H Triglycerides Cholesterol LDL Cholesterol, Calc HDL Cholesterol Cholesterol/HDL Ratio 10/20/18 10/20/18 16:33 05:40 POC Glucose 143 H Triglycerides 242 H Cholesterol 226 H LDL Cholesterol, Calc 135 H HDL Cholesterol 42.3 Cholesterol/HDL Ratio 5.34 Impressions ITS Impressions Chest X-Ray 10/19/18 23:35 CONCLUSION: 1. Negative portable chest. Abdomen/Pelvis CT 10/20/18 00:00 CONCLUSION: 1. Gallstones in the gallbladder. No biliary tract obstruction. 2. 2 cm left adrenal nodule most likely an adrenal adenoma. 3. 4 mm nonobstructing stone lower pole right kidney. 4. Old moderate compression fracture of L4. Myocardial Perfusion Scan Nuc Med 10/20/18 00:00 CONCLUSION: Large apical infarct. Gallbladder Ultrasound 10/20/18 00:52 CONCLUSION: 1. Cholelithiasis without sonographic evidence for acute cholecystitis. 2. Echogenic enlarged liver consistent with hepatic steatosis versus medical liver disease. 3. Nonvisualization of the pancreas. Discharge Plan Discharge Disposition Patient Disposition: Discharge Home Discharge Condition Condition: Stable Discharge Order Discharge Orders: Discharge Order (Routine); Ordered 10/21/18 Ordered By: Guerda Nelson Discharge Details Anticipated Discharge Date: 10/21/18 Physicians Team Primary Care Provider: Kody Crane Attending Provider: Bahman Carrasco Other Providers: Ajay Jean Baptiste Rxs /Orders / Referrals /Forms Prescriptions: New lisinopril 5 mg Tablet 5 mg PO DAILY Qty: 30 RF: 0 metoprolol tartrate 25 mg Tablet 12.5 mg PO BID Qty: 30 RF: 0 aspirin 81 mg Tablet,Chewable 81 mg PO DAILY Qty: 30 RF: 0 Continue meloxicam 15 mg Tablet 15 mg PO HS RF: 0 glimepiride 2 mg Tablet 2 mg PO QAM RF: 0 metformin 1,000 mg Tablet 1,000 mg PO DAILY RF: 0 Referrals: Kody Crane MD [Primary Care Provider] - See Instructions Discharge Instructions Patient Printed Instructions: Chest Pain (ED), Hyperlipidemia (GEN) Additional Instructions: Lab work done in the hospital indicated that your cholesterol is high. You should talk to your primary care provider about possibly starting a medication for cholesterol such as atorvastatin. Discharge Interventions Interventions: Discharge Planning - Case Management Last Done: 10/20/18 16:21 Status ED Status: Left Department
== END 2018-10-21 17:35 | disposition home or self-care (01) ==
LOC: PHEDA 23:24 → PHED 23:24 → PHEDH 10-20 06:28 → PH3 10-20 11:10
PROVIDERS: ADMIT Internal Medicine; ATTEND Internal Medicine
CPT/HCPCS: 71010; 71045; 74176; 76705; 78452; 80053; 80061; 82550; 82948; 82962; 83690; 84484; 85025; 90761; 90774; 90775; 93005; 93017; 93306; 96361; 96374; 96375; 96376; 99285; A9502; C8952; C9113; G0378; J1815; J2270; J2405; J2785; J7030; J7040; Q9969